=== PATIENT | male | born 1975 | race African-American/Black ===

== ENCOUNTER 2018-05-03 02:34 | Observation (INO) | payer BC ==
--- NOTE | 2018-05-03 05:10 | HP ---
PRIMARY CARE PHYSICIAN: Dr. Corey Armijo. CHIEF COMPLAINT: Chest pain. HISTORY OF PRESENT ILLNESS: Mr. Vivek Paula is a 43-year-old male with past medical history of diabetes, hypertension, who presents to the emergency department for left-sided chest pain. The patient was seen in the outside ER and was given nitroglycerin x2, morphine 1 L normal saline, and was given aspirin and transferred to the ER. The patient reports that his chest pain has improved significantly and he is doing well at this point. The patient denies any nausea, vomiting, abdominal pain, or fever. Reports some chills earlier, but does not report them anymore. The patient reports that he has been compliant with his medication. PAST MEDICAL HISTORY: Hypertension, diabetes, hyperlipidemia. SOCIAL HISTORY: The patient is a current smoker, half a pack per day. Occasional alcohol. Denies any illicit drugs. PAST SURGICAL HISTORY: The patient reports circumcision. ALLERGIES: REPORTS NO NEW ALLERGIES TO DRUG AT THIS POINT. CURRENT MEDICATIONS: Include: 1. Aspirin. 2. Lisinopril. 3. Lyrica. 4. Levemir. 5. Metformin. 6. Gabapentin. FAMILY HISTORY: The patient denies any knowledge of heart disease or diabetes in the family. REVIEW OF SYSTEMS: A 10-point review of system is negative other than mentioned in the HPI. PHYSICAL EXAMINATION: VITAL SIGNS: Blood pressure 128/86, pulse 74, respiratory rate 18, temperature 97.8, and O2 saturation 96% on room air. GENERAL: The patient appears to be alert. HEAD: Atraumatic. EARS, NOSE, AND THROAT: No discharge or bleeding noted. NECK: Nontender. No lymphadenopathy noted. CARDIOVASCULAR: Regular rate and rhythm. No murmur, rubs, or gallops. RESPIRATORY: No wheezes. Clear bilaterally. ABDOMEN: Soft, nontender. Bowel sounds positive. EXTREMITIES: Lower extremity, no edema noted. NEUROLOGICAL: The patient is alert. SKIN: No rashes noted. LABORATORY DATA: The patient's CBC and BMP reviewed from the outside facility. Sodium significant for 132. The patient's glucose is in 240s. Otherwise, his labs were within normal limits. CT angiogram of the chest negative for PE. The patient's EKG is negative for any ST-segment elevation. ASSESSMENT AND PLAN: 1. Chest pain, resolving. The patient was given nitroglycerin in the ER. 2. Diabetes type 2. 3. Current smoker. 4. The patient will be admitted for acute coronary syndrome rule out. Initial set of troponin are negative. We will continue to trend troponins and tele. The patient may be discharged if his troponins are negative with outpatient cardiology followup. 5. Diabetes. Continue home insulin plus sliding scale insulin. 6. Hypertension. Continue home medication. 7. Continue all home medications except for metformin given the patient was given contrast in the outside ER. 8. The patient is full code. 9. Medical power of title attorney, . 10. Deep venous thrombosis prophylaxis addressed. Job ID: [id number]
[2018-05-03] MEDS ORDERED: Dextrose 50% Abboject 50 ML SYRINGE SLOW IVP PRN (05:37)
[2018-05-03] MEDS ORDERED: Acetaminophen 325 MG TAB PO PRN (05:37)
[2018-05-03] MEDS ORDERED: HumaLOG 300 UNITS/3 ML VIAL SC PRN (05:37)
[2018-05-03] MEDS ORDERED: Nitroglycerin 0.4 MG TAB (25 Tab Bottle) PO PRN (05:37)
[2018-05-03] MEDS ORDERED: Dextrose 5% in Water 1,000 ML IV PRN (05:37)
[2018-05-03] MEDS ORDERED: Nicotine 14 MG PATCH TD SCH (05:37)
[2018-05-03 06:16] LABS: Troponin I Less than 0.010 ng/mL (< 0.028)
[2018-05-03 07:43] VITALS: BMI 28.9
[2018-05-03] MEDS ORDERED: Enoxaparin Sodium 40 MG/0.4 ML SYRINGE SC SCH (09:00)
[2018-05-03] MEDS ORDERED: Aspirin 81 mg Enteric Coated Tablet PO SCH (09:00)
[2018-05-03 09:17] LABS: Troponin I Less than 0.010 ng/mL (< 0.028)
[2018-05-03] MEDS ORDERED: ADENOSINE 60 MG/20 ML VIAL ONE (09:49)
[2018-05-03 11:01] LABS: Hemoglobin 14.6 g/dL (14.0-18.0); Mean Corpuscular Hemoglobin 29.8 pg (27.0-31.0); Mean Corpuscular Volume 90.3 fL (78.0-98.0); RBC Distribution Width 12.4 % (11.5-14.5)
[2018-05-03 11:13] LABS: Anion Gap 8 mmol/L (10-20); BUN (Urea Nitrogen) 10 mg/dL (8.9-20.6); Calc. Creatinine Clearance 126 mL/min (70-130); Calcium 9.4 mg/dL (7.8-10.44); Carbon Dioxide 29 mmol/L (22-29); Chloride 102 mmol/L (98-107); Estimated GFR-MDRD Greater than 90; Glucose 308 mg/dL (70-105); Potassium 4.2 mmol/L (3.5-5.1); Sodium 135 mmol/L (136-145)
[2018-05-03 11:24] LABS: Eosinophils 4 % (0-10); Large Platelets SLIGHT; Lymphocytes 21 % (21-51); MDiff Complete? YES; Mean Platelet Volume 8.5 fL (7.4-10.4); Monocytes 11 % (0-10); Neutrophil 34 % (42-75); Platelet Count 142 thou/uL (130-400); Platelet Morphology Comment Appears Decreased; Reactive Lymphocytes 30 % (0-10)
[2018-05-03 15:50] VITALS: BP 134/83; TEMP 98.2
--- NOTE | 2018-05-03 16:23 | NM ---
NUCLEAR MEDICINE CARDIAC STRESS TEST WITH EJECTION FRACTION 05/03/18 HISTORY: Chest pain. COMPARISON: None. TECHNIQUE: Stress and rest performed through the intravenous administration of 27 and 9 millicuries technetium 9 9m Sestamibi, respectively. There is adequate left ventricular uptake of radiotracer. No scar or ischemia. Wall motion is normal. Ejection fracture is 56%. IMPRESSION: Normal exam. POS: LYNDA
[2018-05-03] MEDS ORDERED: Insulin Glargine 35 UNITS in Pre-Filled Syringe 1 EACH SC SCH (21:00)
[2018-05-04] MEDS ORDERED: Lisinopril 20 MG TAB PO SCH (09:00)
[2018-05-04] MEDS ORDERED: Gabapentin 300 MG CAP PO SCH (09:00)
[2018-05-04] MEDS ORDERED: Insulin Glargine 35 UNITS in Pre-Filled Syringe 1 EACH SC SCH (09:00)
== END 2018-05-03 18:03 | disposition home or self-care (01) ==
LOC: ERS 02:34 → 2SW 05:27
PROVIDERS: ADMIT Family Medicine; ATTEND Family Medicine
DX: R07.9 Chest pain, unspecified (principal); I10 Essential (primary) hypertension; E11.9 Type 2 diabetes mellitus without complications; E78.5 Hyperlipidemia, unspecified; F17.210 Nicotine dependence, cigarettes, uncomplicated; Z79.4 Long term (current) use of insulin; Z79.82 Long term (current) use of aspirin; Z79.899 Other long term (current) drug therapy; Z98.890 Other specified postprocedural states
CPT/HCPCS: 36415; 36416; 78452; 80048; 84484; 85025; 93017; 96372; 99285; A9500; G0378; J0153; J1650; J1825